=== PATIENT | male | born 1985 | race Caucasian/White ===

== ENCOUNTER 2017-03-01 10:28 | Emergency (ER) | payer MEDICAID ==
[~2017-03-01] VITALS: Ht 180.3 cm; Wt 90.0 kg
[2017-03-01 10:40] VITALS: BP 158/78; PULSE 101; RESP 18; TEMP 98.6; O2SAT 99
[2017-03-01] MEDS ORDERED: KETOROLAC TROMETHAMINE 30 MG/ML (IVP) VIAL IV PUSH ONE (11:00)
--- NOTE | 2017-03-01 11:08 | RADRPT ---
EXAM DATE/TIME: 03/01/2017 10:58 [facility] COMPARISON: No previous studies available for comparison. INDICATIONS : Chest pain since Sunday. MEDICAL HISTORY : None. SURGICAL HISTORY : None. ENCOUNTER: Initial ACUITY: 3 days PAIN SCORE: 6/10 LOCATION: Bilateral chest FINDINGS: A single view of the chest demonstrates the lungs to be symmetrically aerated without evidence of mas s, infiltrate or effusion. The cardiomediastinal contours are unremarkable. Osseous structures are intact. CONCLUSION: Normal examination. Bayron Ireland MD on March 01, 2017 at 11:06 Board Certified Radiologist. This report was verified electronically.
[2017-03-01 11:09] LABS: AUTOMATED NEUTROPHIL # 5.9 TH/MM3 (1.8-7.7); BASOPHIL % 0.2 % (0.0-2.0); EOSINOPHIL % 0.5 % (0.0-4.0); HEMATOCRIT 45.5 % (39.0-51.0); HEMO FLAGS DIFF FINAL; LYMPH % 20.6 % (9.0-44.0); LYMPHOCYTE # 1.6 TH/MM3 (1.0-4.8); MEAN CORPUSCULAR HEMOGLOBIN 28.4 PG (27.0-34.0); MEAN CORPUSCULAR HGB CONC 33.8 % (32.0-36.0); MONO % 5.7 % (0.0-8.0); PLATELET COUNT 197 TH/MM3 (150-450); RED BLOOD COUNT 5.41 MIL/MM3 (4.50-5.90); RED CELL DISTRIBUTION WIDTH 12.4 % (11.6-17.2); WHITE BLOOD COUNT 7.9 TH/MM3 (4.0-11.0)
[2017-03-01 11:17] LABS: CHLORIDE 101 MEQ/L (98-107); POTASSIUM 3.8 MEQ/L (3.5-5.1); SODIUM (NA) 137 MEQ/L (136-145)
[2017-03-01 11:21] LABS: ANION GAP 9 MEQ/L (5-15); BICARBONATE 26.8 MEQ/L (21.0-32.0)
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
[2017-03-01 11:22] LABS: BLOOD UREA NITROGEN 8 MG/DL (7-18)
[2017-03-01 11:25] LABS: ALT (GPT) 26 U/L (12-78); AST (GOT) 16 U/L (15-37); GLOMERULAR FILTRATION RATE 104 ML/MIN (>89)
[2017-03-01 11:26] LABS: TOTAL BILIRUBIN ADULT 0.5 MG/DL (0.2-1.0)
[2017-03-01 11:27] LABS: ALKALINE PHOSPHATASE 126 U/L (45-117)
[2017-03-01 11:58] VITALS: BP 136/69; PULSE 96; RESP 16; O2SAT 97
[2017-03-01] MEDS ORDERED: IOHEXOL 350 MG/ML 10 ML VIAL (for RAD DIAG) IVCONTRAST ONE (13:15)
--- NOTE | 2017-03-01 13:41 | RADRPT ---
EXAM DATE/TIME: 03/01/2017 13:05 [facility] COMPARISON: No previous studies available for comparison. INDICATIONS : Left chest and left upper quadrant pain x 2 days. IV CONTRAST: 85 cc Omnipaque 350 (iohexol) IV ; Cumulative dose for multiple exams. ORAL CONTRAST: No oral contrast ingested. RADIATION DOSE: 20.79 CTDIvol (mGy) MEDICAL HISTORY : None SURGICAL HISTORY : None. ENCOUNTER: Initial ACUITY: 2 days PAIN SCALE: 5/10 LOCATION: Left upper quadrant TECHNIQUE: Volumetric scanning of the abdomen and pelvis was performed. Using automated exposure control and ad justment of the mA and/or kV according to patient size, radiation dose was kept as low as reasonably achievable to obtain optimal diagnostic quality images. DICOM format image data is available electro nically for review and comparison. FINDINGS: LOWER LUNGS: The visualized lower lungs are clear. LIVER: Homogeneous density without lesion. There is no dilation of the biliary tree. No calcified gallston es. SPLEEN: Normal size without lesion. PANCREAS: Within normal limits. KIDNEYS: Normal in size and shape. There is no mass, stone or hydronephrosis. ADRENAL GLANDS: Within normal limits. VASCULAR: There is no aortic aneurysm. BOWEL/MESENTERY: There is a questionable inflammation around the duodenum, specifically the second and third portions responsibility of peptic ulcer disease. ABDOMINAL WALL: Within normal limits. RETROPERITONEUM: There is no lymphadenopathy. BLADDER: No wall thickening or mass. REPRODUCTIVE: Within normal limits. INGUINAL: There is no lymphadenopathy or hernia. MUSCULOSKELETAL: Within normal limits for patient age. CONCLUSION: Some questionable inflammation around the second and third portions of the duodenum raise the possibi lity of peptic ulcer disease, otherwise unremarkable. Bayron Ireland MD on March 01, 2017 at 13:38 Board Certified Radiologist. This report was verified electronically.
--- NOTE | 2017-03-01 13:46 | RADRPT ---
EXAM DATE/TIME: 03/01/2017 13:05 [facility] COMPARISON: No previous studies available for comparison. INDICATIONS : Left chest and left upper quadrant pain x 2 days. IV CONTRAST: 85 cc Omnipaque 350 (iohexol) IV ; Cumulative dose for multiple exams. RADIATION DOSE: 22.26 CTDIvol (mGy) MEDICAL HISTORY : None SURGICAL HISTORY : None. ENCOUNTER: Initial ACUITY: 2 days PAIN SCALE: 5/10 LOCATION: Left chest TECHNIQUE: Volumetric scanning of the chest was performed using a pulmonary embolism protocol MIP images were re constructed. Using automated exposure control and adjustment of the mA and/or kV according to patien t size, radiation dose was kept as low as reasonably achievable to obtain optimal diagnostic quality images. DICOM format image data is available electronically for review and comparison. Follow-up recommendations for detected pulmonary nodules are based at a minimum on nodule size and pa tient risk factors according to Fleischner Society Guidelines. FINDINGS: PULMONARY ARTERIES: No filling defects are seen in the pulmonary arteries through the segmental level. LUNGS: There is no consolidation or pneumothorax . No concerning pulmonary nodule is visualized. PLEURAE: There is no pleural thickening or pleural effusion. MEDIASTINUM: There is good visualization of the great vessels of the middle mediastinum. Mildly enlarged lymph nod es within the prevascular space of the mediastinum measuring 3.0 x 1.1 centimeters and within the sub carinal space measuring 2.5 x 1.1 cm are noted and are nonspecific. MUSCULOSKELETAL: Within normal limits for patient age. MISCELLANEOUS: The visualized upper abdominal organs demonstrate no acute abnormality. Hepatosplenomegaly is noted. CONCLUSION: 1. No evidence of pulmonary embolism. 2. Nonspecific prevascular and subcarinal mediastinal lymphadenopathy. Reactive and neoplastic lympha denopathy are in the differential. 3. Hepatosplenomegaly. Tim Mills MD on March 01, 2017 at 13:39 Board Certified Radiologist. This report was verified electronically.
[2017-03-01 13:57] VITALS: BP 130/78; PULSE 84; RESP 16; O2SAT 99
[2017-03-01] MEDS ORDERED: RANI150T PO (13:57)
--- NOTE | 2017-03-02 11:33 | EKG ---
Date Performed: 03/01/2017 Time Performed: 10:32:17 PTAGE: 32 years EKG: Sinus rhythm WITH SINUS ARRHYTHMIA NORMAL ECG NO PREVIOUS TRACING DOCTOR: Curt Roy Interpretating Date/Time 03/02/2017 11:30:04
== END 2017-03-01 14:11 | disposition home or self-care (01) ==
LOC: PHED 10:28
DX: K27.9 Peptic ulcer, site unspecified, unspecified as acute or chronic, without hemorrhage or perforation (principal); R16.2 Hepatomegaly with splenomegaly, not elsewhere classified; F17.200 Nicotine dependence, unspecified, uncomplicated
CPT/HCPCS: 71010; 71275; 74177; 80053; 83690; 84484; 85025; 85379; 93005; 96374; 99285; J1885; Q9967